=== PATIENT | male | born 1940 | race Caucasian/White ===

== ENCOUNTER 2018-10-02 11:13 | Emergency (ER) | payer SELFPAY ==
[~2018-10-02] VITALS: Wt 72.0 kg
[2018-10-02] MEDS ORDERED: ENAL20TA PO (13:02)
[2018-10-02] MEDS ORDERED: IBUP-1542 PO (13:02)
[2018-10-02] MEDS ORDERED: AMOX1TAB10 PO (13:02)
[2018-10-02 13:08] VITALS: BP 165/87; PULSE 94; RESP 17
--- NOTE | 2018-10-02 13:09 | ERD ---
ER Documentation Chief Complaint Chief Complaint SWELLING ON RIGHT CHEEK X3 DAYS HPI 77 yo M hx of htn off meds for 1 mo who presents with dental pain and right facial swelling x 3 days. The patient notes moderate throbbing pain that is worse to touch to the superior posterior aspect of his molars. He notes mild f acial swelling over the past 24-36 hours. No fevers or chills difficulty swallowing or breathing. He also notes elevated blood pressure but is been noncompliant with blood pressure medications for greater than 1 month. No headache chest pain or shortness of breath. ROS All systems reviewed and are negative except as per history of present illness. Medications Home Meds Active Scripts Enalapril Maleate* (Enalapril Maleate*) 20 Mg Tablet, 20 MG PO DAILY for 30 Days, TAB Prov:GRICEL XIE MD 10/02/18 Ibuprofen* (Motrin*) 600 Mg Tab, 600 MG PO Q6H PRN for PAIN AND OR ELEVATED TEMP, #30 TAB Prov:GRICEL XIE MD 10/02/18 Amoxicillin/Potassium Clav (Amox-Clav 875-125 mg Tablet) 875-125 mg Tab, 1 TAB PO BID for 10 Days, #20 TAB Prov:GRICEL XIE MD 10/02/18 PMhx/Soc History of Surgery: Yes (RT KNEE) Anesthesia Reaction: No Hx Neurological Disorder: No Hx Respiratory Disorders: No Hx Cardiac Disorders: Yes (HTN, HIGH CHOLESTEROL) Hx Psychiatric Problems: No Hx Miscellaneous Medical Probl: No Hx Alcohol Use: No Hx Substance Use: No Hx Tobacco Use: No Smoking Status: Never smoker FmHx Family History: No diabetes Physical Exam Vitals Vital Signs Date Temp Pulse Resp B/P (MAP) Pulse Ox O2 O2 Flow FiO2 Time Delivery Rate 10/02/18 98.4 108 17 182/86 98 11:27 (118) Physical Exam General: Well developed, well nourished, no acute distress Head: Normocephalic, atraumatic. Eyes: Pupils equally reactive, EOM intact ENT: The patient has poor dentition, there is a significant dental carry to the right posterior molar on the upper section of his mouth with slight tenderness to percussion. There is associated swelling to the facial area near the zygomatic arch at this point, no palpable fluctuance or induration noted. Posterior pharynx without swelling, tolerating secretions. Neck: Supple, no lymphadenopathy Respiratory: Lungs clear bilaterally, no distress Cardiovascular: RRR, no murmurs, rubs, or gallops Abdominal: Soft, non-tender, non-distended, no peritoneal signs : Deferred MSK: No edema, no unilateral swelling, 5/5 strength Neurologic: Alert and oriented, moving all extremities, normal speech, no focal weakness, no cerebellar signs Skin: No rash Psych: Normal mood Procedures/MDM The patient presents with a symptom medic hypertension. He has been noncompliant with his medications. No evidence of endorgan dysfunction. I will refill his enalapril 20 mg daily The patient also has evidence of dental infection and possible apical abscess. The patient does have some mild associated facial swelling but no evidence of facial cellulitis, orbital cellulitis or preseptal cellulitis. The swelling is coming from the poor dentition and tooth but there is no palpable abscess. The patient needs to follow-up with a dentist and will benefit from cool compresses, antibiotics and pain medication. No evidence of deep space infection. The patient can be safely discharged. The patient does not have an identifiable emergent medical condition that warrants inpatient hospitalization at this time. The patient is deemed safe for discharge with outpatient follow-up. We discussed follow up with the patient's primary care doctor within 24 to 48 hours as needed. We also discussed return to the emergency room for worsening symptoms or worsening condition. Outpatient referral: Dentist in next 1-3 days Discharge Medications: Augmentin, Motrin, enalapril Departure Diagnosis: Primary Impression: Dental abscess Additional Impressions: Hypertension Hypertension type: essential hypertension Qualified Codes: I10 - Essential (primary) hypertension Asymptomatic hypertensive urgency Condition: Stable Patient Instructions: Dental Abscess, High Blood Pressure (Hypertension), Dental Cavity Ref[facility] Usted se ramirez hecho un examen mdico de control que le indica que no est en blade condicin que requiera tratamiento urgente en el Departamento de Emergencia. Un estudio ms profundo y el tratamiento de lo condicin pueden esperar sin ningn riesgo hasta que usted sea atendida/o en el consultorio de lo mdico o blade clnica. Es responsabilidad suya arreglar blade mic para el seguimiento del devin. MANEJO DE CONDICIONES NO URGENTES EN EL FUTURO 1) Si usted tiene un mdico de atencin primaria: Usted debera llamar a lo mdico de atencin primaria antes de venir al departamento de emergencia. Despus de las horas de consultorio, lo doctor o lo asociado/a est disponible por telfono. El mdico o enfermero de melany en el servicio telefnico puede asesorarle por lux medio para atender el problema, o devin contrario se puede programar blade mic. 2) Si usted no tiene un mdico de atencin primaria: Llame al mdico o clnica de referencia que aparece abajo harlan las horas de consultorio para hacer blade mic para que le vean. CLINICAS: [place] [id number] [phone] [facility] [phone] [id number] [facility]. [facility] [phone] [facility]. [place] [id number] [phone] [facility]. [facility] [phone] [id number] [facility]. [phone] [address] . [facility] () [place] se ramirez hecho un examen mdico de control que le indica que no est en blade condicin que requiera tratamiento urgente en el Departamento de Emergencia. Un estudio ms profundo y el tratamiento de lo condicin pueden esperar sin ningn riesgo hasta que usted sea atendida/o en el consultorio de lo mdico o blade clnica. Es responsabilidad suya arreglar blade mic para el seguimiento del devin. MANEJO DE CONDICIONES NO URGENTES EN EL FUTURO 1) Si usted tiene un mdico de atencin primaria: Usted debera llamar a lo mdico de atencin primaria antes de venir al departamento de emergencia. Despus de las horas de consultorio, lo doctor o lo asociado/a est disponible por telfono. El mdico o enfermero de melany en el servicio telefnico puede asesorarle por lux medio para atender el problema, o devin contrario se puede programar blade mic. 2) Si usted no tiene un mdico de atencin primaria: Llame al mdico o condado institucions de referencia que aparece abajo harlan las horas de consultorio para hacer blade mic para que le vean. SI USTED NO PUEDE PAGAR PARA HILLARY UN MEDICO puede ir a: [facility] [id number] [place] [address] [facility] [address] [place] [address] [facility] [address] [place] [address] [facility] [address] [place], [place] [phone] [facility] ([facility] walk in clinic) Additional Instructions: Llame al doctor MAANA y melisa blade MIC PARA DENTRO DE 2-3 DUTTA.Dgale a la secretaria que nosotros le instruimos hacer esta mic.Avise o llame si lo condicin se empeora antes de la mic. Regresa aqui si peor o no mejor. GRICEL XIE MD Oct 02, 2018 13:09
== END 2018-10-02 13:08 | disposition home or self-care (01) ==
LOC: E/R 11:13
DX: K04.7 Periapical abscess without sinus (principal); I10 Essential (primary) hypertension; I16.0 Hypertensive urgency
CPT/HCPCS: 99283